=== PATIENT | female | born 1965 | race Caucasian/White ===

== ENCOUNTER 2023-03-26 10:08 | Outpatient (REF) | payer MEDICAID, SELFPAY ==
--- NOTE | 2023-03-26 09:30 | PAPFT_PTH ---
PATIENT: Roxana Ramires [facility] U#:[id number] AGE/SX: 58/F ROOM: RE03/26/[address]: Claire Marcelo : 1965 BED: DIS: 03/26/2023 SPEC #: [id number] RECD: 03/26/23 17:01 STATUS: YASMEEN KATE #: [id number] MARILEE: 03/26/23 09:[address]: Claire Marcelo DEPT: [facility] Cytology RECD BY: Ann Francis Tissues: 1 - CX/ENDOCX FOR PAP SMEARS Procedures: PAP THIN PREP/[facility] Screening HPV DNA PROBE Comments: [id number]
== END 2023-03-26 10:09 | disposition home or self-care (01) ==
LOC: NCHCN 10:08
PROVIDERS: PCP Family Medicine; Visit Provider Family Medicine
DX: Z00.00 Encounter for general adult medical examination without abnormal findings (principal); Z12.4 Encounter for screening for malignant neoplasm of cervix
CPT/HCPCS: 88142; 87624